=== PATIENT | female | born 1995 | race Caucasian/White ===

== ENCOUNTER 2017-08-23 17:38 | Emergency (ER) | payer BC, MEDICAID, OTHER ==
--- NOTE | 2017-08-23 18:10 | EDPHY ---
H & P Stated Complaint: SI - Personal History LMP (Females 10-55): Over 28 Days Ago Current Tetanus/Diphtheria Vaccine: No Current Tetanus Diphtheria and Acellular Pertussis (TDAP): No - Medical/Surgical History Hx Asthma: No Hx Chronic Respiratory Disease: No Hx Diabetes: No Hx Cardiac Disease: No Hx Renal Disease: No Hx Cirrhosis: No Hx Alcoholism: No Hx HIV/AIDS: No Hx Splenectomy or Spleen Trauma: No Other PMH: depression, bipolar - Social History Smoking Status: Current every day smoker Time Seen by Provider: 08/23/17 17:56 HPI/ROS: CHIEF COMPLAINT: "I'm suicidal" HISTORY OF PRESENT ILLNESS: 21-year-old female history of bipolar disorder, prior history of suicide attempt by drinking bleach, in the ER voluntarily after saw her therapist today recommend she go to the ER for evaluation of suicidal ideation with plan to jump in front of the vehicle. She notes progressive depression. She denies suicide attempt. She does note that she dugher fingernail into her left volar wrist yesterday. PRIMARY CARE PROVIDER: REVIEW OF SYSTEMS: A ten point review of systems was performed and is negative with the exception of the items mentioned in the HPI PAST MEDICAL & SURGICAL HISTORY: Bipolar disorder SOCIAL HISTORY: Denies acute alcohol or drug use PHYSICAL EXAM (Prior to examination, patient consented to physical exam, hands were washed and my usual and customary physical exam procedures followed) 1) GENERAL: Well-developed, well-nourished, alert and oriented. Appears to be in no acute distress. 2) HEAD: Normocephalic, atraumatic 3) HEENT: Pupils equal, round, reactive to light bilaterally. Sclera anicteric. 4) NECK: Full range of motion, no meningeal signs. 5) LUNGS: Clear auscultation bilaterally, no wheezes, no rhonchi, no retractions. 6) HEART: Regular rate and rhythm, no murmur, no heave, no gallop. 7) ABDOMEN: No guarding, no rebound, no focal tenderness, 8) MUSCULOSKELETAL: Left volar wrist irritation and abrasion no signs of infection. No peripheral edema or discoloration. 9) BACK: No CVA tenderness, no midline vertebral tenderness, no fluctuance, no step-off, no obvious trauma, no visual or palpable abnormality. 10) SKIN: No rash, no petechiae. 11) Psychiatric: Patient is oriented X 3, depressed, flat, withdrawn affect DIFFERENTIAL DIAGNOSIS: In no particular order including but not limited to suicidal ideation, homicidal ideation, bipolar disorder, tae (Kosta Tolliver) Constitutional: Initial Vital Signs Temperature (C) 36.9 C 08/23/17 17:41 Heart Rate 83 08/23/17 17:41 Respiratory Rate 20 08/23/17 17:41 Blood Pressure 128/100 H 08/23/17 17:41 O2 Sat (%) 97 08/23/17 17:41 O2 Delivery Mode Room Air Allergies/Adverse Reactions: No Known Allergies Allergy (Unverified 08/23/17 17:40) Home Medications: Medication Instructions Recorded Abilify 08/23/17 Hydroxyzine HCl 08/23/17 Prazosin HCl 08/23/17 Medical Decision Making ED Course/Re-evaluation: 6:08 p.m. in consultation with Dr. Gaurav Draper, secondary supervising physician, I think the patient poses an imminent danger to herself. Recommended placement on an M1 hold as she actively experiencing suicidal ideation with plan to jump in front of a car. Midnight: Serial evaluations have been performed on this patient during her emergency department stay. Mental health legal services professional is currently seeking placement for the patient. She remains calm and cooperative. Care turned over to Dr Vasquez at this time. (Kosta Tolliver Jessica) 0237: Patient has been accepted at [facility]. By Dr. Sterling. Patient be appropriately transfer there. EMTALA filled out (Mega Vasquez) - Data Points Laboratory Results: Laboratory Results 08/23/17 08:24 08/23/17 08:24 08/23/17 08/23/17 08/23/17 18:05 18:05 08:24 WBC RBC Hgb Hct MCV MCH MCHC RDW Plt Count MPV Neut % (Auto) Lymph % (Auto) Harvey % (Auto) Eos % (Auto) Baso % (Auto) Nucleat RBC Rel Count Absolute Neuts (auto) Absolute Lymphs (auto) Absolute Monos (auto) Absolute Eos (auto) Absolute Basos (auto) Absolute Nucleated RBC Immature Gran % Immature Gran # Sodium 141 mEq/L mEq/L (135-145) Potassium 3.9 mEq/L mEq/L (3.5-5.2) Chloride 103 mEq/L mEq/L (97-110) Carbon Dioxide 22 mEq/l mEq/l (22-31) Anion Gap 16 mEq/L mEq/L (8-16) BUN 11 mg/dL mg/dL (7-23) Creatinine 0.8 mg/dL mg/dL (0.6-1.0) Estimated GFR > 60 Glucose 84 mg/dL mg/dL (70-100) Calcium 9.3 mg/dL mg/dL (8.5-10.4) Urine Test NEGATIVE Urine Opiates Screen NEGATIVE (NEGATIVE) Urine Barbiturates NEGATIVE (NEGATIVE) Ur Phencyclidine Scrn NEGATIVE (NEGATIVE) Ur Amphetamine Screen NEGATIVE (NEGATIVE) U Benzodiazepines Scrn NEGATIVE (NEGATIVE) Urine Cocaine Screen NEGATIVE (NEGATIVE) U Marijuana (THC) Screen NON-NEGATIVE H (NEGATIVE) Ethyl Alcohol < 10 mg/dL mg/dL (0-10) 08/23/17 08:24 WBC 6.17 10^3/uL 10^3/uL (3.80-9.50) RBC 4.65 10^6/uL 10^6/uL (4.18-5.33) Hgb 13.0 g/dL g/dL (12.6-16.3) Hct 39.4 % % (38.0-47.0) MCV 84.7 fL fL (81.5-99.8) MCH 28.0 pg pg (27.9-34.1) MCHC 33.0 g/dL g/dL (32.4-36.7) RDW 14.9 % % (11.5-15.2) Plt Count 305 10^3/uL 10^3/uL (150-400) MPV 9.3 fL fL (8.7-11.7) Neut % (Auto) 43.0 % % (39.3-74.2) Lymph % (Auto) 46.8 % H % (15.0-45.0) Harvey % (Auto) 8.4 % % (4.5-13.0) Eos % (Auto) 1.3 % % (0.6-7.6) Baso % (Auto) 0.3 % % (0.3-1.7) Nucleat RBC Rel Count 0.0 % % (0.0-0.2) Absolute Neuts (auto) 2.65 10^3/uL 10^3/uL (1.70-6.50) Absolute Lymphs (auto) 2.89 10^3/uL 10^3/uL (1.00-3.00) Absolute Monos (auto) 0.52 10^3/uL 10^3/uL (0.30-0.80) Absolute Eos (auto) 0.08 10^3/uL 10^3/uL (0.03-0.40) Absolute Basos (auto) 0.02 10^3/uL 10^3/uL (0.02-0.10) Absolute Nucleated RBC 0.00 10^3/uL 10^3/uL (0-0.01) Immature Gran % 0.2 % % (0.0-1.1) Immature Gran # 0.01 10^3/uL 10^3/uL (0.00-0.10) Sodium Potassium Chloride Carbon Dioxide Anion Gap BUN Creatinine Estimated GFR Glucose Calcium Urine Test Urine Opiates Screen Urine Barbiturates Ur Phencyclidine Scrn Ur Amphetamine Screen U Benzodiazepines Scrn Urine Cocaine Screen U Marijuana (THC) Screen Ethyl Alcohol Departure - Departure Disposition: Other Psych, Not Margie Clinical Impression: Suicidal ideation Bipolar disorder (manic depression) Qualifiers: Active/Remission status: currently active Current bipolar episode type: depressed Current episode severity: severe Psychotic features: without psychotic features Qualified Code(s): F31.4 - Bipolar disorder, current episode depressed, severe, without psychotic features Condition: Fair Referrals: Marion Herring MD [Primary Care Provider] - As per Instructions
[2017-08-23 18:33] LABS: PLATELET COUNT 305 10^3/uL (150-400)
[2017-08-24 03:22] VITALS: BP 96/76
== END 2017-08-24 03:00 ==
LOC: EEVIPCON 17:38
DX: R45.851 Suicidal ideations (principal); F31.4 Bipolar disorder, current episode depressed, severe, without psychotic features; F17.200 Nicotine dependence, unspecified, uncomplicated
CPT/HCPCS: 80305; G0480